=== PATIENT | female | born 1985 | race Caucasian/White ===

== ENCOUNTER → 2020-01-30 | Outpatient (CLI) | payer OTHER ==
--- NOTE | 2020-01-30 17:25 | US ---
EXAMINATION TYPE: US OB anatomy transabd DATE OF EXAM: 01/30/2020 COMPARISON: NONE HISTORY: Z36.3 Encounter for screening for malfor Anatomy TECHNIQUE: Transabdominal (TA) EXAM MEASUREMENTS: GESTATIONAL AGE / DATING Physician Established: (18 weeks/6 days) EDC:06/26/2020 Dates by LMP: (18 weeks/6 days) EDC: 06/26/2020 Dates by First Scan: No previous first scan. Dates by Current Scan for: (19 weeks/4 days)EDC 06/21/2020 SURVEY IUP: Single PLACENTA: Anterior PREVIA: Low Lying CRISTHIAN: Appears wnl did not measure. CERVICAL LENGTH (transabdominal: norm > 3.0cm): 3.5 cm BIOMETRY PRESENTATION: Breech LIE: Longitudinal BPD:4.4 cm 19 weeks / 3 days HC: 16.9 cm 19 weeks / 4 days AC: 14.8 cm 20. weeks / 1 days FL: 2.9 cm 19 weeks / 0 days ESTIMATED WEIGHT IN GRAMS: 298 grams ESTIMATED WEIGHT IN LBS/OZ: 0 lbs. 11 oz. WEIGHT PERCENTAGE BASED ON ESTABLISHED DATE: 84 % HC/AC: 1.14 cm Normal FL/AC: 20% HEART RATE: 155 bpm RHYTHM: Normal ANATOMY SEEN (within normal limits): * Lateral Vent (< 1 cm) 0.9 cm * Cisterna Magna (< 1.1 cm) 0.4 cm * Nuchal Fold (< 0.6 cm) 0.4 cm * Cerebellum (varies with age) 1.7 cm Choroid Plexus (bilateral) Midline Falx Cavus Septi Pellucidi Four Chamber Heart Stomach Situs Nose / Lips Bladder Cord Insert Three Vessel Cord Arms (bilateral) Legs (bilateral) ANATOMY SEEN (does not appear within normal limits): ANATOMY NOT SEEN: Kidneys, diaphragm Outflow tracts: LVOT/RVOT Longitudinal Spine Transverse Spine CRISTHIAN needs to be measured. IMPRESSION: Single viable intrauterine corresponding to an ultrasound age 19 weeks 4 days with estimate d date of delivery 06/21/2020, Limited survey
== END | disposition home or self-care (01) ==
LOC: RADUSWWP 15:34
PROVIDERS: ATTEND Obstetrics & Gynecology
DX: Z36.3 Encounter for antenatal screening for malformations (principal); Z3A.19 19 weeks gestation of pregnancy
CPT/HCPCS: 76811